=== PATIENT | male | born 1955 | race Caucasian/White ===

== ENCOUNTER 2021-06-25 09:10 | Observation (INO) ==
[~2021-06-25 09:10] MED LIST: Buffered Lidocaine 1% SYRIN 1 ml INTRADERM ONE; Lactated Ringers 1000 ml BAG 1,000 ML IV SCH
[2021-06-25] MEDS ORDERED: ceFAZolin 2 GM in NS PREMIX 2 GM/100 ML BAG IVPB ONE (09:23)
[2021-06-25] MEDS ORDERED: Ropivacaine 5 MG/ML 20 ML VIAL 0.5% (100 MG) ONE (12:24)
[2021-06-25] MEDS ORDERED: Ketamine HCL 50 mg/ml 10 ml VIAL (500 MG) ONE (12:56)
[2021-06-25] MEDS ORDERED: Phenylephrine IV 10 MG/ML 1 ml VIAL ONE (12:56)
[2021-06-25] MEDS ORDERED: Bupivacaine 0.5% SDV PF 30ML VIAL ONE (12:56)
[2021-06-25] MEDS ORDERED: Midazolam 5 mg/5 ml VIAL 1 mg/ml 5 ml VIAL (5 mg) ONE (12:56)
[2021-06-25] MEDS ORDERED: Lidocaine 1% MPF 5 ML VIAL ONE (13:35)
[2021-06-25] MEDS ORDERED: ROPIVACAINE 5 MG/ML 30 ML BTL (0.5%) ONE (13:37)
[2021-06-25] MEDS ORDERED: Glycopyrrolate IV 0.2 MG/ML 1 ML VIAL ONE (15:00)
[2021-06-25] MEDS ORDERED: Propofol 10 MG/ML 20 ML BTL ONE ×2 (15:03→16:00)
[2021-06-25] MEDS ORDERED: HYDROmorphone 1 MG/1 ML SYRINGE IV PRN (15:38)
[2021-06-25] MEDS ORDERED: Naloxone 0.4 mg VIAL 0.4 mg/ml 1 ml VIAL IV PRN (15:38)
[2021-06-25] MEDS ORDERED: fentaNYL 100 mcg/2 ml 50 MCG/ML VIAL IV PRN (15:38)
[2021-06-25] MEDS ORDERED: Ondansetron 4 mg VIAL 2 MG/ML 2 ml VIAL IV PRN ×2 (15:38→16:45)
[2021-06-25] MEDS ORDERED: diPHENhydraMINE IV 50 MG/ML 1 ml VIAL (BENADRYL) IV PRN ×2 (15:38→16:45)
[2021-06-25] MEDS ORDERED: Acetaminophen IV 1 GM/100ML 100 ML IV PRN (15:38)
[2021-06-25] MEDS ORDERED: DiMENhydriNATE IV 50 mg/ml 1 ml VIAL IV PUSH PRN (15:38)
[2021-06-25] MEDS ORDERED: Ondansetron ODT 4 mg TAB 4 MG TAB PO PRN (16:45)
[2021-06-25] MEDS ORDERED: Magnesium Hydroxide LIQ 30 ML UDC PO PRN (16:45)
[2021-06-25] MEDS ORDERED: Morphine 2 MG/ML SYRINGE IV PRN (16:45)
[2021-06-25] MEDS ORDERED: Lactulose 30 ml UDC PO PRN (16:45)
[2021-06-25] MEDS ORDERED: diPHENhydraMINE 25 mg TAB PO PRN (16:45)
[2021-06-25] MEDS ORDERED: Acetaminophen IV 1 GM/100ML 100 ML IV ONE (16:49)
[2021-06-25] MEDS ORDERED: Lactated Ringers 1000 ml BAG 1,000 ML IV SCH (17:00)
[2021-06-25 21:38] LABS: Hepatitis C Antibody Negative (Negative)
[2021-06-25] MEDS: Magnesium Hydroxide LIQ 30 ML UDC PO SCH (22:01)
[2021-06-25] MEDS: ceFAZolin 1 GM ADVAN 1 GM in NS 0.9% 50 ML 50 ML IVPB SCH (22:59)
[2021-06-26] MEDS: ceFAZolin 1 GM ADVAN 1 GM in NS 0.9% 50 ML 50 ML IVPB SCH ×2 (06:14→14:26)
[2021-06-26 07:42] LABS: Hematocrit 36 % (42-52); Hemoglobin 12.2 g/dL (14.0-18.0); Mean Platelet Volume 9.1 fL (7.4-10.4); Platelet Count 140 10^3/uL (150-450)
[2021-06-26 07:59] LABS: Calcium 8.9 mg/dL (8.6-10.3); Potassium 4.1 mmol/L (3.5-5.0)
[2021-06-26] MEDS ORDERED: Pneumococcal Vac 23-Polyvalent IM ONE (09:00)
[2021-06-26] MEDS ORDERED: Flu vaccine *QUAD* 2021-22* 0.5 ML SYRINGE IM ONE (09:00)
[2021-06-26] MEDS ORDERED: Vitamin THERAPEUTIC TAB PO SCH (09:00)
[2021-06-26] MEDS: Magnesium Hydroxide LIQ 30 ML UDC PO SCH (09:27)
[2021-06-26 11:14] VITALS: BP 174/88
== END 2021-06-26 15:04 | disposition home or self-care (01) ==
LOC: SSU 09:10 → OR 09:10
PROVIDERS: ADMIT Orthopaedic Surgery Adult Reconstructive Orthopaedic Surgery; ATTEND Orthopaedic Surgery Adult Reconstructive Orthopaedic Surgery